=== PATIENT | female | born 1995 | race Caucasian/White ===

== ENCOUNTER 2024-06-29 01:26 | Inpatient (IN) ==
[2024-06-29] MEDS ORDERED: LACTATED RINGER'S 1,000 ML IV PRN (01:47)
[2024-06-29] MEDS ORDERED: LIDOCAINE 1% LOCAL 20 ML VIAL INFIL PRN (01:47)
[2024-06-29] MEDS ORDERED: OXYTOCIN 30 UNITS/NSS 30 UNITS/500 ML BAG IV PRN (01:47)
[2024-06-29] MEDS: SODIUM CHLORIDE 0.9% 1,000 ML IV SCH (02:13)
[2024-06-29 02:28] LABS: Hematocrit (blood only) 34.9 % (37.0-47.0); Hemoglobin 12.2 g/dl (12.0-16.0); Mean Corpuscular Hemoglobin 31.6 pg (25.0-34.0); Mean Corpuscular Volume 90.4 fL (80.0-100.0); Mean Platelet Volume 10.5 fL (9.4-12.4); Platelet Count 214 K/uL (130-400); RDW Standard Deviation 42.4 fL (36.4-46.3); Red Blood Count 3.86 M/uL (4.20-5.40); White Blood Count 16.17 K/ul (4.8-10.8)
--- NOTE | 2024-06-29 02:40 | Anesthesiology Consultation ---
Date of Service June 29, 2024 Assessment & Plan (1) Encounter for pre-operative examination: Chart Review Chart Review: Acceptable Risk for Labor Epidural History Height/Weight Height: 5 ft 7 in Weight: 98.883 kg Allergies Allergy/AdvReac Type Severity Reaction Status Date / Time No Known Allergies Allergy Unverified 06/28/24 19:30 Medications Home Medications Medication Instructions Recorded Confirmed Last Taken vits no.124-ferrous fum 1 tab PO DAILY 06/28/24 06/28/24 06/28/24 27 mg iron-folic acid 800 mcg tablet ( Vitamin) Active Medications Generic Name Dose Route Start Last Admin Trade Name Freq PRN Reason Stop Dose Admin Sodium Chloride 1,000 mls @ 80 mls/hr 06/29/24 02:00 06/29/24 02:13 Nss IV 06/30/24 01:59 999 mls/hr .[id number] ERIKA Administration Past Medical History Medical History Chlamydia Heart palpitations Varicella vaccination Past Family History Family History Father Hypertension Denies family history of Ovarian cancer Breast cancer Colonic polyp Past Surgical History Surgical History H/O myringotomy H/O eye surgery S/P wisdom tooth extraction Social History Smoking Status: Never smoker Do You Dip or Chew Tobacco: No Hx Alcohol Use: No substance use type: marijuana Last Used Substance Other:: Stopped with + HPT Physical Exam Vital Signs Last Vital Signs Temp 36.8 C 06/29/24 02:16 Pulse 85 06/29/24 02:25 BP 116/75 06/29/24 01:59 Pulse Ox 99 06/29/24 02:25 Testing Laboratory Results 06/29/24 02:05
[2024-06-29] MEDS: BUPIVACAINE 0.25% PF 30 ML VIAL ONE (03:17)
[2024-06-29] MEDS: LIDOCAINE 2%/EPINEPHRINE 1:200,000 20 ML PF ONE (03:18)
[2024-06-29] MEDS: fentaNYL citrate PF 100 MCG/2 ML VIAL ONE (03:18)
[2024-06-29] MEDS: fentANYL 2 MCG/ML BUPIVacaine 0.125%-NSS 100ML BAG ONE (03:19)
[2024-06-29] MEDS: ePHEDrine sulfate 50 MG/ML AMP ONE (03:22)
[2024-06-29] MEDS ORDERED: fentaNYL citrate PF 100 MCG/2 ML VIAL EPI PRN (03:24)
[2024-06-29] MEDS ORDERED: BUPIVACAINE 0.25% PF 30 ML VIAL EPI PRN (03:24)
[2024-06-29] MEDS ORDERED: LIDOCAINE 2% MPF LOCAL 5 ML VIAL EPI PRN (03:24)
[2024-06-29] MEDS ORDERED: SODIUM CHLORIDE 0.9% PF INJ 10 ML VIAL EPI PRN (03:24)
[2024-06-29] MEDS ORDERED: ONDANSETRON INJ 2 MG/ML 2 ML VIAL IV PRN (03:24)
[2024-06-29] MEDS ORDERED: ROPIVACAINE 0.5% PF 5 MG/ML 20 ML VIAL EPI PRN (03:24)
[2024-06-29] MEDS ORDERED: NALOXONE HCL 0.4 MG/1 ML VIAL/CARP IV PRN (03:24)
[2024-06-29] MEDS ORDERED: fentANYL 2 MCG/ML BUPIVacaine 0.125%-NSS 100ML BAG EPI PRN (03:24)
[2024-06-29] MEDS ORDERED: NALOXONE HCL 1 MG in SODIUM CHLORIDE 0.9% 1,000 ML IV PRN (03:24)
[2024-06-29] MEDS ORDERED: ePHEDrine sulfate 50 MG/ML AMP IV PRN (03:24)
[2024-06-29] MEDS: SODIUM CHLORIDE 0.9% PF INJ 10 ML VIAL ONE (03:28)
[2024-06-29] MEDS: LIDOCAINE 2%/EPINEPHRINE 1:200,000 20 ML PF EPI STA (03:31)
[2024-06-29] MEDS: fentaNYL citrate PF 100 MCG/2 ML VIAL EPI STA (03:31)
[2024-06-29] MEDS: SODIUM CHLORIDE 0.9% PF INJ 10 ML VIAL EPI STA (03:31)
[2024-06-29] MEDS: BUPIVACAINE 0.25% PF 30 ML VIAL EPI STA (03:31)
--- NOTE | 2024-06-29 06:16 | History & Physical Report ---
Date of Service June 29, 2024 Assessment & Plan (1) Post term over 40 weeks: Plan pt has been admitted and did get her epidural. ctx pattern not regular and so arom to help labor pattern. pitocin aug if needed planned. ts categ 1. Admission and Anticipated Discharge Date Admission Date: June 29, 2024 History of Present Illness Chief Complaint: contractions Primary Care Provider: Shannan Fitzgerald MD 28yo at 40+wks presents to LD with CC of regular ctx. Patient removed her own hollis ripening balloon when she got home--placed for planned induction today. Then called after mn with regular ctx. No rom, no vb. +FM. Painful ctx. On arrival cx was 4cm and 80% effaced with ctx q 4 and admitted. PNC c/b 1. rh neg 2. needs mmr pp OBH: g1 PSYCHOLOGY INSTRUCTOR: nl paps. Allergies Allergy/AdvReac Type Severity Reaction Status Date / Time No Known Allergies Allergy Unverified 06/28/24 19:30 Home Medications Medication Instructions Recorded Confirmed Type vits no.124-ferrous fum 1 tab PO DAILY 06/28/24 06/28/24 History 27 mg iron-folic acid 800 mcg tablet ( Vitamin) Patient History Medical History Chlamydia Heart palpitations Varicella vaccination Surgical History H/O myringotomy H/O eye surgery S/P wisdom tooth extraction Family History Father Hypertension Denies family history of Ovarian cancer Breast cancer Colonic polyp Social History (Updated 11/09/23 @ 09:59 by Kassy Boss RN) Smoking Status: Never smoker Do You Dip or Chew Tobacco: No; Hx Alcohol Use: No Preferred Language: [place] Communication Ability: Effective 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 FOB changes litter current occupational status: unemployed Other Information That Helps Us Care for You: No Feels Safe at Home: Yes Assistive Devices: Contacts and Glasses Review of Systems as per Subjective / HPI Physical Exam Constitutional: WD/WN, vitals as above Gastrointestinal (Abdomen): soft gravid nt Musculoskeletal: tr edema Neurologic: grossly normal Psychiatric: A+Ox3, euthymic affect Genitourinary: Manual OB Exam: + cervical dilation 5 cm, + cervical effacement 90%, + station -1 and + amniotic fluid (arom) clear OB Exam Monitor Tracing: + external FHT monitor used, + external uterine monitor used (q4), + category I and + normal FHT variability Results & Data Vital Signs (Past 12 Hours) Vital Signs Temp Pulse Resp BP Pulse Ox 06/29/24 06:09 82 98 06/29/24 06:08 77 109/60 06/29/24 06:04 76 98 06/29/24 05:59 78 100 06/29/24 05:54 98 06/29/24 05:54 89 06/29/24 05:54 94 H 115/66 06/29/24 05:49 83 98 06/29/24 05:44 71 98 06/29/24 05:43 16 06/29/24 05:43 98.2 F 16 06/29/24 05:40 90 118/76 06/29/24 05:39 84 96 06/29/24 05:34 71 97 06/29/24 05:29 65 96 06/29/24 05:24 63 96 06/29/24 05:23 65 102/56 L 06/29/24 05:19 65 97 06/29/24 05:14 66 97 06/29/24 05:10 60 104/59 L 06/29/24 05:09 62 98 06/29/24 05:04 65 99 06/29/24 04:59 67 100 06/29/24 04:54 66 99 06/29/24 04:53 63 104/58 L 06/29/24 04:49 72 99 06/29/24 04:44 66 99 06/29/24 04:39 72 98 06/29/24 04:38 74 100/56 L 06/29/24 04:34 66 98 06/29/24 04:29 71 99 06/29/24 04:25 70 102/57 L 06/29/24 04:24 64 99 06/29/24 04:19 71 100 06/29/24 04:14 77 100 06/29/24 04:10 73 105/56 L 06/29/24 04:09 72 99 06/29/24 04:04 74 99 06/29/24 04:03 79 93 06/29/24 03:59 75 100 06/29/24 03:54 75 99 06/29/24 03:49 75 103/55 L 100 06/29/24 03:44 18 06/29/24 03:44 97.9 F 18 06/29/24 03:44 98 06/29/24 03:44 79 06/29/24 03:44 74 106/54 L 06/29/24 03:39 99 06/29/24 03:39 81 06/29/24 03:39 78 98/55 L 06/29/24 03:34 86 98 06/29/24 03:33 83 98/53 L 06/29/24 03:31 79 102/56 L 06/29/24 03:29 83 97/53 L 99 06/29/24 03:27 85 100/53 L 06/29/24 03:25 77 16 99/56 L 06/29/24 03:24 75 97 06/29/24 03:23 80 93/55 L 06/29/24 03:21 76 85/50 L 06/29/24 03:20 74 91/54 L 06/29/24 03:19 82 88/54 L 98 06/29/24 03:18 76 91/51 L 06/29/24 03:16 90 18 106/58 L 06/29/24 03:14 82 98 06/29/24 03:09 103 H 98 06/29/24 03:04 114 H 99 06/29/24 02:58 95 H 100 06/29/24 02:57 102 H 93 06/29/24 02:53 87 100 06/29/24 02:51 95 H 93 06/29/24 02:48 80 100 06/29/24 02:43 80 100 06/29/24 02:42 89 85 L 06/29/24 02:38 85 100 06/29/24 02:25 85 99 06/29/24 02:16 98.2 F 06/29/24 01:59 86 116/75 Coding Level of Care Code None Diagnoses Post term over 40 weeks O48.0
[2024-06-29] MEDS: OXYTOCIN 30 UNITS/NSS 30 UNITS/500 ML BAG IV PRN (11:30)
[2024-06-29] MEDS ORDERED: DIPHTHER/TETAN/PERTUS Vaccine (Tdap, Adol/Adult) 0.5mL IM ONE (11:39)
[2024-06-29] MEDS ORDERED: HYDROCORTISONE ACETATE 25 MG SUPP PR PRN (11:39)
[2024-06-29] MEDS ORDERED: oxyCODONE/ACETAMINOPHEN 5mg/325mg TAB PO PRN (11:39)
[2024-06-29] MEDS ORDERED: bisacodyL 10 MG SUPP PR PRN (11:39)
--- NOTE | 2024-06-29 11:40 | Delivery Summary ---
Vaginal Delivery Summary Date of Service June 29, 2024 Vaginal Delivery Summary and 2nd Degree LAC Spontaneous vaginal delivery the patient is scheduled for induction but had a cervical Vaughn last night and then went into labor her membranes ruptured spontaneously and she received an epidural she pushed delivering a baby in occiput posterior position over the vagina after delivery of the head gentle traction on the baby it was noted to have a loose nuchal cord which was easily passed over the head rest the baby was delivered without difficulty no excessive force easy delivery live vigorous female cord clamped and cut cord blood obtained placenta removed with traction IV Pitocin started uterine tone excellent Second-degree tear repaired with 3-0 Vicryl sponge and instruments correct QBL 215 mL MNPG Vaginal Delivery Charge Delivery Type Details: and 2nd Degree LAC
--- NOTE | 2024-06-29 12:51 | Anesthesia Procedure Note ---
Date of Service June 29, 2024 Anesthesia Post Epidural Note Vital Signs Vital Signs: Temp Pulse Resp BP Pulse Ox 36.9 C 100 H 18 124/58 L 96 06/29/24 11:40 06/29/24 12:45 06/29/24 12:25 06/29/24 12:45 06/29/24 11:30 Notes Mental Status: alert / awake / arousable and participated in evaluation Nausea / Vomiting: adequately controlled Pain: adequately controlled Airway Patency, RR, SpO2: stable & adequate BP & HR: stable & adequate Hydration State: stable & adequate Neuraxial Anesthesia: was administered and sensory block is resolving Anesthetic Complications: no major complications apparent and Pt Satisfied with anesthetic care Epidural: Removed without complications and With tip intact
[2024-06-29] MEDS: IBUPROFEN 600 MG TAB PO PRN (13:08)
[2024-06-29] MEDS: BENZOCAINE 20% SPRY 85 APPLN/85 GM CAN EXT PRN (13:08)
[2024-06-29] MEDS: ACETAMINOPHEN 325 MG TAB PO PRN (21:00)
[2024-06-29] MEDS: DOCUSATE SODIUM 100 MG CAP PO SCH (21:01)
[2024-06-30 06:07] LABS: Hematocrit (blood only) 32.1 % (37.0-47.0); Hemoglobin 10.9 g/dl (12.0-16.0); Mean Corpuscular Hemoglobin 31.4 pg (25.0-34.0); Mean Corpuscular Volume 92.5 fL (80.0-100.0); Mean Platelet Volume 10.8 fL (9.4-12.4); Platelet Count 188 K/uL (130-400); RDW Coefficient of Variation 13.1 % (11.5-14.5); RDW Standard Deviation 43.4 fL (36.4-46.3); Red Blood Count 3.47 M/uL (4.20-5.40); White Blood Count 13.73 K/ul (4.8-10.8)
--- NOTE | 2024-06-30 07:47 | Obstetrical Progress Note ---
Date of Service June 30, 2024 Assessment & Plan (1) Vaginal delivery: Plan: Plan: Both mom and baby doing well. Hb: 10.9gm% Continue care as per protocol. DC tomorrow. Admission and Anticipated Discharge Date Admission Date: June 29, 2024 Supervising Physician Co-Signing Physician Notes Resident Physician Supervision Note: I was present with Dr. delgado during the history and exam. I discussed the case with the resident and agree with the findings and plan as documented in the note. Any exceptions or clarifications are listed here: [None] Documented By: Nathaniel Valdez MD, FACOG Subjective 1st PP Day following 28 years at 40 +1 week POG. No active complains Both mom and baby doing well. Pain: Mild, intermittent Lochia: Moderate Diet: Regular Ob diet Gas: Passed gas Peeing: Normal, no bladder distension Ambulation: Normally Review of Systems Review of Systems: No SOB, chest pain, leg pain No dizziness, headache, palpitation No Blurring of vision , fever Physical Exam Physical Exam: General: Alert and oriented. No acute distress. CVS: S1 S2+ No murmurs, regular rhythm. Respiratory: CTA bilaterally. No rhonchi, wheezes, or crackles. No increased work of breathing. Abdomen: Bowel sound +. Soft, nontender Uterus: Fundus firm and palpable few cm suprapubic Lower extremities: No LE edema. No deep calf pain. Results & Data Vital Signs (Past 12 Hours) Vital Signs Temp Pulse Resp BP Pulse Ox O2 Del Method 06/30/24 05:30 36.4 C L 78 18 110/72 Room Air 06/30/24 00:30 36.5 C 78 18 125/74 99 Room Air 06/29/24 21:00 36.7 C 87 18 122/74 98 Room Air Resident Activity Tracking Resident Involvement: Resident Care Provided Care Provided: OB Delivery
[2024-06-30] MEDS: MEASLES, MUMPS & RUBELLA VIRUS VACCINE (MMR) 0.5ML VIAL SQ ONE (09:00)
[2024-06-30] MEDS: PRENATAL VITAMIN 1 TAB PO SCH (09:03)
[2024-06-30] MEDS: MEASLES, MUMPS & RUBELLA VIRUS VACCINE (MMR) 0.5ML VIAL ONE (14:26)
[2024-06-30] MEDS: bisacodyL 5 MG TABEC PO SCH (20:21)
[2024-07-01 07:37] LABS: Hematocrit (blood only) 31.6 % (37.0-47.0); Hemoglobin 10.7 g/dl (12.0-16.0)
--- NOTE | 2024-07-01 07:50 | Obstetrical Progress Note ---
Date of Service July 01, 2024 Assessment & Plan (1) Vaginal delivery: Plan: Plan: Both mom and baby doing well. Hb: 10.9gm% DC today Admission and Anticipated Discharge Date Admission Date: June 29, 2024 Supervising Physician Co-Signing Physician Notes Resident Physician Supervision Note: I interviewed and examined the patient. Discussed with Dr. Garcia and agree with findings and plan as documented in the note. Any exceptions or clarifications are listed here: Doing well, stable for dc Documented By: Cindy Colon MD Subjective 2nd PP Day following 28 years at 40 +1 week POG. No active complains Both mom and baby doing well. Pain: Mild, intermittent Lochia: Moderate Diet: Regular Ob diet Gas: Passed gas Peeing: Normal, no bladder distension Ambulation: Normally Review of Systems Review of Systems: No SOB, chest pain, leg pain No dizziness, headache, palpitation No Blurring of vision , fever Physical Exam Physical Exam: General: Alert and oriented. No acute distress. CVS: S1 S2+ No murmurs, regular rhythm. Respiratory: CTA bilaterally. No rhonchi, wheezes, or crackles. No increased work of breathing. Abdomen: Bowel sound +. Soft, nontender Uterus: Fundus firm and palpable few cm suprapubic Lower extremities: No LE edema. No deep calf pain. Results & Data Vital Signs (Past 12 Hours) Vital Signs Temp Pulse Resp BP Pulse Ox O2 Del Method 06/30/24 23:12 36.9 C 77 16 130/76 97 Room Air 06/30/24 19:54 36.5 C 84 18 127/86 98 Room Air Resident Activity Tracking Resident Involvement: Resident Care Provided Care Provided: OB Delivery
[2024-07-01 08:48] VITALS: BP 126/81; PULSE 64; RESP 18; TEMP 97.7; O2SAT 99
== END 2024-07-01 10:00 | disposition home or self-care (01) | DRG 807 ==
LOC: OPB 01:26 → 4S1 01:28 → 4E2 14:18